=== PATIENT | female | born 1990 | race Caucasian/White ===

== ENCOUNTER 2021-03-09 09:39 | Day surgery (SDCO) | payer OTHER ==
[~2021-03-09] VITALS: Ht 175.3 cm; Wt 151.0 kg
[2021-03-09 10:00] LABS: HCG (URINE) SCREEN NEGATIVE (NEGATIVE)
[2021-03-09 10:29] LABS: HCT 24.4 % (37.0-47.0); HGB 6.7 g/dl (12.5-16.0); MCH 18.7 pg (25.0-31.0); MCHC 27.5 g/dL (32.0-36.0); MPV 11.2 fL (6.0-9.5); RBC 3.59 M/uL (4.20-5.40); RDW 17.7 % (11.5-14.0); WBC 5.9 K/uL (4.0-10.5)
[2021-03-09 10:52] LABS: BUN/CREAT RATIO (CALC) 15.7 RATIO; CREATININE 0.89 mg/dL (0.51-0.95); POTASSIUM 3.8 mmol/L (3.5-5.1)
[2021-03-10 06:02] LABS: BASOPHIL 0.7 % (0-2); EOSINOPHIL 2.7 % (0-5); HGB 8.2 g/dl (12.5-16.0); LYMPHOCYTE 34.8 % (15-48); MCH 20.9 pg (25.0-31.0); MCHC 29.3 g/dL (32.0-36.0); MCV 71.2 fL (78.0-100.0); MONOCYTE 4.9 % (0-12); MPV 11.2 fL (6.0-9.5); NEUTROPHIL 56.5 % (41-80); NRBC 0; PLT 233 K/uL (150-400); RBC 3.93 M/uL (4.20-5.40); RDW 19.9 % (11.5-14.0); WBC 7.4 K/uL (4.0-10.5)
[2021-03-10] MEDS ORDERED: FEOSOL325 MG PO (08:32)
[2021-03-10] MEDS ORDERED: DIFLUCAN150 MG PO (08:32)
== END 2021-03-10 09:20 | disposition home or self-care (01) ==
LOC: FAS 09:39 → FMS 11:51 → FAS 14:00 → FMS 03-10 09:20
PROVIDERS: ADMIT Obstetrics & Gynecology
DX: N84.0 Polyp of corpus uteri (principal); N87.0 Mild cervical dysplasia; D64.9 Anemia, unspecified; F41.8 Other specified anxiety disorders; I10 Essential (primary) hypertension; E66.01 Morbid (severe) obesity due to excess calories; K21.9 Gastro-esophageal reflux disease without esophagitis; F17.210 Nicotine dependence, cigarettes, uncomplicated; Z68.42 Body mass index [BMI] 45.0-49.9, adult
CPT/HCPCS: 36415; 36430; 80048; 84703; 85025; 86850; 86900; 86901; 86922; 93005; G0378; J1885; J2250; J2405; J2704; J3010; J7120; J7121; P9016